=== PATIENT | female | born 1985 | race Hispanic/Latino ===

== ENCOUNTER 2024-08-15 16:29 | Inpatient (IN) | payer BC ==
[2024-08-15 17:12] VITALS: BMI 35.6
[2024-08-15 17:57] LABS: #Basophils 0.02 10x3/uL (0.0-0.2); #Eosinophils 0.05 10x3/uL (0.0-0.5); #Monocytes 0.77 10x3/uL (0.0-1.1); #Neutrophils 6.36 10x3/uL (1.5-8.4); %Basophils 0.2 % (0.0-2.0); %Eosinophils 0.5 % (0.0-6.0); %Lymphocytes 23.4 % (18.0-47.0); %Monocytes 8.1 % (0.0-10.0); %Neutrophils 67.4 % (40.0-75.0); Hematocrit 35.7 % (34.9-44.5); Hemoglobin 11.8 g/dL (12.0-15.5); Mean Corpuscular HGB CONC 33.1 g/dL (32.0-36.0); Mean Corpuscular Hemoglobin 30.8 pg (27.0-33.0); Mean Corpuscular Volume 93.2 fL (81.6-98.3); Mean Platelet Volume 10.3 fL (7.4-10.4); Platelet Count 240 10x3/uL (150-450); RBC Distribution Width 11.9 % (11.5-14.5); Red Blood Cell (RBC) Count 3.83 10x6/uL (3.90-5.03); White Blood Cell (WBC) Count 9.5 10x3/uL (3.5-10.5)
[2024-08-15 18:18] LABS: ALT (SGPT) 18 U/L (8-55); AST (SGOT) 15 U/L (5-34); Albumin 2.6 g/dL (3.5-5.0); Alkaline Phosphatase 97 U/L (40-110); Anion Gap 12 mmol/L (10-20); BUN (Urea Nitrogen) 11 mg/dL (7.0-18.7); Bilirubin, Total 0.2 mg/dL (0.2-1.2); Calc. Creatinine Clearance 176 mL/min (70-130); Calcium 8.4 mg/dL (7.8-10.44); Carbon Dioxide 19 mmol/L (22-29); Chloride 109 mmol/L (98-107); Estimated GFR 117; Globulin 3.2 g/dL (2.4-3.5); Glucose 81 mg/dL (70-105); Potassium 4.4 mmol/L (3.5-5.1); Protein, Total 5.8 g/dL (6.0-8.3); Sodium 136 mmol/L (136-145)
[2024-08-15] MEDS: hydrALAZINE 20 MG/ML VIAL SLOW IVP PRN (18:55)
[2024-08-15] MEDS: Magnesium Sulfate 20 gm/500 ml 20 GM/500 ML BAG ONE (19:01)
[2024-08-15 19:05] LABS: Creatinine, Urine 26.44 mg/dL (47-110)
[2024-08-15] MEDS ORDERED: Lorazepam 2 MG/ML VIAL SLOW IVP PRN (19:07)
[2024-08-15] MEDS ORDERED: Calcium Gluc 4.6 MEQ/10 ML (100 MG/ML) SLOW IVP PRN (19:07)
[2024-08-15] MEDS ORDERED: Tranexamic Acid 1,000 MG/10 ML VIAL IVP PRN (19:09)
[2024-08-15] MEDS: NIFEdipine 10 MG CAP PO SCH (19:09)
[2024-08-15] MEDS ORDERED: Misoprostol 200 MCG TAB PR PRN (19:09)
[2024-08-15] MEDS ORDERED: Promethazine HCl 25 MG/ML VIAL IM PRN ×5 (19:09→23:57)
[2024-08-15] MEDS ORDERED: Zolpidem Tartrate 5 MG TAB PO PRN ×2 (19:09→23:37)
[2024-08-15] MEDS ORDERED: Ondansetron PF 4 MG/2 ML Vial IVP PRN ×4 (19:09→23:57)
[2024-08-15] MEDS ORDERED: NIFEdipine 10 MG CAP PO SCH (19:15)
[2024-08-15] MEDS ORDERED: Oxytocin 30 units/NS 500 ML 500 ML IV SCH (19:15)
[2024-08-15] MEDS ORDERED: Labetalol HCl 100 MG/20 ML VIAL SLOW IVP PRN ×4 (19:19→19:30)
[2024-08-15] MEDS ORDERED: NIFEdipine 10 MG CAP PO PRN (19:19)
[2024-08-15] MEDS: Betamet Acet/Betamet Na Ph 30 MG/5 ML VIAL IM SCH (19:21)
[2024-08-15 19:40] LABS: Bilirubin Neg (Negative); Blood, Urine 250 (Negative); Clarity Clear (Clear); Glucose, Urine (Dipstick) Normal (Negative); Ketone, Urine Negative (Negative); Leukocyte 25 (Negative); Nitrite Negative (Negative); Protein, Urine (Dipstick) 30 mg/dl (Neg-Trace); Specific Gravity, Urine 1.005 (1.005-1.030); Urobilinogen Normal mg/dL (Less than 2)
[2024-08-15] MEDS: Lactated Ringer's 1,000 ML IV SCH (19:44)
[2024-08-15 19:50] LABS: FFN Internal QC Analyzer PASS (PASS); FFN Internal QC Cassette PASS (PASS); Fetal Fibronectin POSITIVE (Negative)
[2024-08-15 20:01] LABS: Hep B Surf Ag - L&D Non-Reactive S/CO (NonReactive); Syphilis Antibody Nonreactive (Nonreactive); Syphilis Antibody Index 0.09 S/CO (<1.00 Non-Reactive)
[2024-08-15 20:07] LABS: Bacteria/HPF 2+ HPF (None Seen); CAUTI Indications for Culture Pregnancy; Yeast-Budding Rare HPF (None Seen)
[2024-08-15] MEDS ORDERED: fentaNYL 50 mcg/mL 1 mL Vial SLOW IVP PRN (20:07)
[2024-08-15 20:10] LABS: Transitional Epithelial 0-3 HPF (None Seen)
[2024-08-15 20:11] LABS: Urine Culture Reflex No No; Urine Culture Reflex Yes Yes
[2024-08-15] MEDS: Terbutaline Sulfate 1 MG/ML VIAL ONE (20:53)
[2024-08-15] MEDS ORDERED: cefTRIAXone\\ROCEPHIN 1 GM in Sodium Chloride 0.9% 100 ML IVPB SCH (21:45)
[2024-08-15] MEDS ORDERED: Bicitra 30 ML UDCUP PO PRN (22:21)
[2024-08-15] MEDS ORDERED: Famotidine/PF 20 mg/2ml Vial SLOW IVP PRN (22:21)
[2024-08-15] MEDS ORDERED: CEFAZOLIN 2 GM in Sodium Chloride 0.9% 100 ML IVPB SCH (22:30)
[2024-08-15] MEDS: Carboprost 250 MCG/ML AMP IM PRN (22:49)
[2024-08-15] MEDS ORDERED: Naloxone HCl 0.4 mg/ml Vial IV PRN ×3 (23:06→23:57)
[2024-08-15] MEDS ORDERED: diphenhydrAMINE 50 MG/ML VIAL IM PRN ×3 (23:06→23:57)
[2024-08-15] MEDS ORDERED: Ondansetron HCl/PF 4 MG/2 ML Vial IVP PRN (23:06)
[2024-08-15] MEDS ORDERED: diphenhydrAMINE 25 MG CAP PO PRN ×3 (23:06→23:57)
[2024-08-15] MEDS ORDERED: diphenhydrAMINE 50 MG/ML VIAL IVP PRN ×3 (23:06→23:57)
[2024-08-15] MEDS ORDERED: FENTANYL 500 MCG/10 ML VIAL 2,000 MCG in Sodium Chloride 0.9% 60 ML IV PRN (23:07)
[2024-08-15 23:11] LABS: Analyzer IN Cardio CS NICU; RapidComm Collect By RN
[2024-08-15 23:12] LABS: Analyzer IN Cardio CS NICU; RapidComm Collect By RN; pH (Cord, venous) 7.254 (7.250-7.350)
[2024-08-15] MEDS ORDERED: Communication Order-Pharmacy FS SCH ×3 (23:15→23:45)
[2024-08-15] MEDS ORDERED: Lanolin Ointment 7 GM TUBE TOP PRN (23:37)
[2024-08-15] MEDS ORDERED: Bisacodyl 10 MG SUPP PR PRN (23:37)
[2024-08-15] MEDS ORDERED: Meperidine HCl/PF 25 MG (1 mL) VIAL IM PRN (23:37)
[2024-08-15] MEDS ORDERED: HYDROcodone/Acetaminophen 5/325 mg Tablet PO PRN (23:37)
[2024-08-15] MEDS ORDERED: hydrALAZINE 20 MG/ML VIAL SLOW IVP PRN (23:37)
[2024-08-15] MEDS ORDERED: Ibuprofen 600 MG TAB PO PRN (23:42)
[2024-08-15] MEDS ORDERED: FENTANYL IV PRN (23:57)
[2024-08-16] MEDS: Diphenoxylate HCl/Atropine Tablet PO PRN (00:16)
[2024-08-16] MEDS: fentaNYL 50 mcg/mL 1 mL Vial ONE ×3 (00:23→02:32)
[2024-08-16 01:18] LABS: D-Dimer Test 7.21 mcg/mL (0.19-0.50); INR-International Normal Ratio 0.9; PTT 27.9 sec (22.0-33.0); Prothrombin Time 9.8 sec (9.5-12.1)
[2024-08-16] MEDS: FENTANYL IV PRN (01:28)
[2024-08-16] MEDS: NIFEdipine 10 MG CAP ONE (02:30)
[2024-08-16] MEDS: SUCCINYLCHOLINE/SOD CL,ISO/PF 200 MG/10 ML SYRINGE FS ONE (02:30)
[2024-08-16] MEDS: PROPOFOL 20 ML ONE ×2 (02:30→02:31)
[2024-08-16] MEDS: Oxytocin 10 UNITS/ML VIAL ONE ×2 (02:30→02:31)
[2024-08-16] MEDS: CEFAZOLIN 2 GM VIAL ONE (02:30)
[2024-08-16] MEDS: Azithromycin 500 MG VIAL ONE (02:30)
[2024-08-16] MEDS: Ondansetron PF 4 MG/2 ML Vial ONE (02:31)
[2024-08-16] MEDS: Famotidine/PF 20 mg/2ml Vial ONE (02:31)
[2024-08-16] MEDS: Magnesium Sulfate 20 gm/500 ml 20 GM/500 ML BAG IVPB SCH (03:33)
[2024-08-16 04:31] LABS: #Basophils 0.02 10x3/uL (0.0-0.2); #Neutrophils 15.24 10x3/uL (1.5-8.4); %Basophils 0.1 % (0.0-2.0); %Lymphocytes 6.8 % (18.0-47.0); %Monocytes 1.8 % (0.0-10.0); %Neutrophils 90.8 % (40.0-75.0); Hemoglobin 12.1 g/dL (12.0-15.5); Mean Corpuscular HGB CONC 34.6 g/dL (32.0-36.0); Mean Corpuscular Hemoglobin 32.1 pg (27.0-33.0); Mean Corpuscular Volume 92.8 fL (81.6-98.3); Mean Platelet Volume 9.8 fL (7.4-10.4); Platelet Count 199 10x3/uL (150-450); RBC Distribution Width 11.9 % (11.5-14.5); Red Blood Cell (RBC) Count 3.77 10x6/uL (3.90-5.03); White Blood Cell (WBC) Count 16.8 10x3/uL (3.5-10.5)
[2024-08-16 04:49] LABS: ALT (SGPT) 20 U/L (8-55); AST (SGOT) 24 U/L (5-34); Albumin 2.4 g/dL (3.5-5.0); Alkaline Phosphatase 109 U/L (40-110); Anion Gap 14 mmol/L (10-20); BUN (Urea Nitrogen) 10 mg/dL (7.0-18.7); Bilirubin, Total 0.3 mg/dL (0.2-1.2); Calc. Creatinine Clearance 171 mL/min (70-130); Calcium 7.6 mg/dL (7.8-10.44); Carbon Dioxide 16 mmol/L (22-29); Chloride 107 mmol/L (98-107); Estimated GFR 116; Globulin 3.6 g/dL (2.4-3.5); Glucose 146 mg/dL (70-105); Potassium 4.5 mmol/L (3.5-5.1); Sodium 132 mmol/L (136-145)
[2024-08-16 04:54] LABS: Critical Call Chemistry NUR.ARP@0453; Magnesium 5.5 mg/dL (1.6-2.6)
[2024-08-16] MEDS: Ferrous Sulfate 325 MG TAB PO SCH (09:22)
[2024-08-16] MEDS: Docusate 100 MG CAP PO SCH (09:22)
[2024-08-16] MEDS: NIFEdipine XL 30 MG ER.TAB PO SCH (15:16)
[2024-08-16] MEDS: Prenatal Vitamin 1 TAB PO SCH (15:20)
[2024-08-16] MEDS: Ketorolac Tromethamine 30 MG (1 mL) VIAL IVP PRN (15:43)
[2024-08-16] MEDS: FENTANYL 1,000 MCG/20 ML VIAL 1,000 MCG in Sodium Chloride 0.9% 30 ML IV PRN (16:02)
[2024-08-17 04:02] LABS: Hematocrit 30.9 % (34.9-44.5); Hemoglobin 10.2 g/dL (12.0-15.5)
[2024-08-17] MEDS: NIFEdipine XL 30 MG ER.TAB PO SCH (09:00)
[2024-08-17] MEDS: HYDROcodone/Acetaminophen 10/325 mg Tablet PO PRN (12:45)
[2024-08-17] MEDS: DC PCA Order Set 1 EACH FS ONE (12:46)
[2024-08-17] MEDS: Ibuprofen 800 MG TAB PO SCH (14:00)
[2024-08-17] MEDS: Acetaminophen 500 MG TAB PO PRN (17:25)
[2024-08-18] MEDS: Simethicone Chewable 80 MG TAB PO PRN (00:05)
[2024-08-18] MEDS: Boostrix 0.5 ML (Tdap) VIAL (>/=7 yrs of age) IM ONE (07:06)
[2024-08-18] MEDS ORDERED: HYDROcodone/Acetaminophen 5/325 mg Tablet PO PRN (07:27)
[2024-08-18 12:31] VITALS: BP 138/78; TEMP 98.8
== END 2024-08-18 17:00 | disposition home or self-care (01) | DRG 786 ==
LOC: CSHLD/OP 16:29 → CSHLD 22:54 → CSHPP 08-17 02:29
PROVIDERS: ADMIT Obstetrics & Gynecology; ATTEND Obstetrics & Gynecology
PROC: 10D00Z1 Extraction of Products of Conception, Low, Open Approach (ICD-10-PCS; principal; 2024-08-15)
DX: O36.8130 Decreased fetal movements, third trimester, not applicable or unspecified (principal); O45.93 Premature separation of placenta, unspecified, third trimester; O23.43 Unspecified infection of urinary tract in pregnancy, third trimester; O98.82 Other maternal infectious and parasitic diseases complicating childbirth; O14.14 Severe pre-eclampsia complicating childbirth; Z37.0 Single live birth; Z3A.31 31 weeks gestation of pregnancy; E03.9 Hypothyroidism, unspecified; Z79.890 Hormone replacement therapy; O99.284 Endocrine, nutritional and metabolic diseases complicating childbirth; O76 Abnormality in fetal heart rate and rhythm complicating labor and delivery; B37.31 Acute candidiasis of vulva and vagina
CPT/HCPCS: 36415; 51702; 76819; 80053; 81001; 82570; 82731; 82805; 83735; 84156; 85014; 85018; 85025; 85049; 85300; 85362; 85384; 85610; 85730; 86780; 86850; 86900; 86901; 87086; 87340; 87480; 87510; 87660; 88307; 99285; J0360; J0456; J0702; J1885; J2405; J2590; J2704; J3010; J3105; J3475; J3490; J7120

== ENCOUNTER 2024-08-23 10:45 | Emergency (ER) | payer BC ==
[2024-08-23] MEDS ORDERED: Enoxaparin 80 MG (0.8 mL) SYRINGE ONE (12:42)
== END 2024-08-23 14:15 | disposition home or self-care (01) ==
LOC: CSHERS 10:45
DX: I82.402 Acute embolism and thrombosis of unspecified deep veins of left lower extremity (principal)
CPT/HCPCS: 96372; J1650